=== PATIENT | female | born 1970 | race American Indian/Alaskan Native ===

== ENCOUNTER 2018-12-22 14:56 | Outpatient (CLI) | payer BC, OTHER | END 2018-12-22 14:57 | disposition home or self-care (01) | LOC: LABHHL 14:56 | PROVIDERS: ATTEND Surgery | DX: D24.1 Benign neoplasm of right breast (principal) | CPT/HCPCS: 88305 ==

== ENCOUNTER 2019-01-07 06:07 | Day surgery (SDC) | payer BC, OTHER ==
[~2019-01-07 06:07] MED LIST: MARCAINE 0.25% INFILTRATI ONE; VANCOMYCIN/NS 1 GM/250 ML 1 GM/250 ML BAG IV NR; WATER FOR IRRIG STERILE IR ONE; XYLOCAINE 1% 20 mL INFILTRATI ONE
--- NOTE | 2019-01-07 07:18 | Anesthesia Consultation ---
Anesthesia Consult and Med Hx Date of service: 01/07/19 - Airway Anesthetic Teeth Evaluation: Good ROM Head & Neck: Adequate Mental/Hyoid Distance: Adequate Mallampati Class: Class III Intubation Access Assessment: Possibly Difficult - Pulmonary Exam CTA: Yes - Cardiac Exam Cardiac Exam: RRR - Pre-Operative Health Status ASA Pre-Surgery Classification: ASA3 Proposed Anesthetic Plan: General - Pulmonary Hx Smoking: Yes (STARTED AGE 27; QUIT 2003) Hx Respiratory Symptoms: No COPD: No - Cardiovascular System Hx Hypertension: No Hx Heart Attack/AMI: No Hx Percutaneous Transluminal Coronary Angioplasty (PTCA): No Hx Cardia Arrhythmia: No - Central Nervous System Hx Seizures: No CVA: No Hx Psychiatric Problems: No - Gastrointestinal Hx Gastroesophageal Reflux Disease: Yes (hiatal hernia) - Endocrine Hx Renal Disease: No Hx Liver Disease: No Hx Insulin Dependent Diabetes: No Hx Non-Insulin Dependent Diabetes: No Hx Thyroid Disease: No - Other Systems Hx Alcohol Use: Yes Hx Obesity: Yes (BMI 48) - Additional Comments Anesthesia Medical History Comments: No hx anesthetic complication.
--- NOTE | 2019-01-07 07:18 | Anesthesia Day of Surgery ---
Anesthesia Day of Surgery - Day of Surgery Patient Examined: Yes Patient H&P Reviewed: Yes Patient is NPO: Yes
[2019-01-07] MEDS ORDERED: DILAUDID IV PRN (07:19)
[2019-01-07] MEDS ORDERED: PEPCID IV NR (07:19)
[2019-01-07] MEDS ORDERED: VERSED IV NR (08:00)
[2019-01-07] MEDS ORDERED: XYLOCAINE 1% 20 mL ONE ×2 (08:00→09:18)
[2019-01-07] MEDS ORDERED: LACTATED RINGERS 1,000 ML IV SCH (08:00)
[2019-01-07] MEDS ORDERED: VANCOMYCIN 2,000 MG in NACL 0.9% 500 ML 500 ML IV NR (08:00)
[2019-01-07] MEDS ORDERED: MARCAINE 0.25% INFILTRATI ONE ×2 (09:18→10:32)
[2019-01-07] MEDS ORDERED: SUBLIMAZE ONE ×2 (09:20→09:58)
[2019-01-07] MEDS ORDERED: DIPRIVAN 10 MG/ML IV ONE (09:20)
--- NOTE | 2019-01-07 09:54 | Mammography Report ---
NEEDLE LOCALIZATION AND HOOKWIRE PLACEMENT RIGHT BREAST:01/07/19 CLINICAL: Right breast cancer. COMPARISON: 12/22/18 FINDINGS: Using mammographic guidance, 1% lidocaine local anesthesia and sterile technique, a 5.0-cm Molina needle with a hookwire was placed from a CC from above approach to localize a mass with a biopsy clip.. The hookwire was deployed and the needle was removed. Satisfactory placement was confirmed by orthogonal views. The patient tolerated the procedure well and there were no apparent complications. IMPRESSION: Uncomplicated hookwire placement right breast.
[2019-01-07] MEDS ORDERED: XYLOCAINE 1% 20 mL INFILTRATI ONE ×2 (10:00→10:32)
[2019-01-07] MEDS ORDERED: WATER FOR IRRIG STERILE IR ONE (10:30)
[2019-01-07] MEDS ORDERED: TORADOL ONE (10:30)
[2019-01-07] MEDS ORDERED: ZOFRAN ONE (10:30)
[2019-01-07] MEDS ORDERED: DECADRON ONE (10:30)
--- NOTE | 2019-01-07 10:36 | Operative Report ---
Operative Report Operative Report: Operative Report: Date of Service: January 07, 2019 Preoperative diagnosis: Right breast mass of the upper outer quadrant Postoperative diagnosis: Same Procedure: Right breast mass excisional biopsy of the upper outer quadrant Surgeon: Mita Sheldon M.D. Findings: Right breast mass at 12 o'clock position 8 cm from the nipple with excisional biopsy performed; clip and wire present within radiograph specimen Complications: None Drains: None Estimated blood loss: Minimal Disposition: PACU in good condition Indication for operative procedure: This is a 48-year-old lady with right breast mass at the 12:00 position 8 cm from the nipple. She was recently seen in consultation and recommendations were for ultrasound guided needle core biopsy given mass noted on mammogram, radiology recommended 6 month followup with their thoughts of a cyst. Biopsy was performed with findings of a fibroepilethial lesion and recommendations are for an excisional biopsy of mass for a definitive diagnosis, differential of fibroadenoma or phyllodes tumor. Mass was not present on prior mammograms. Patient wished to proceed with the above procedure. The patient was procedure in detail: Radiologist placed wire to localize nodule. The patient was taken to the operating room and was laid supine. General anesthesia was administered. The right breast was prepped and draped in the normal sterile operative fashion. Timeout was performed. Ultrasound was used to oscar the area of incision, clip, wire and mass were noted. A 12:00 breast incision was made with a 15 blade knife with dissection taken down to the subcutaneous tissues. First began raising of the superior flap with removal of the wire from the skin and dissection taken down posteriorly followed by raising of the inferior, medial and lateral flaps. The area of concern was removed posterioly and with wire was not encountered. The specimen was sent to radiology with clip, wire and mass present and then sent to pathology. Hemostasis was then obtained using the Bovie cautery. Breast cavity was anesthesized with 1% lidocai ne and quarter percent marcaine. The breast cavity was irrigated and suctioned. The deep breast tissues were approximated and closed using interrupted 3-0 Vicryl and skin brought together and closed using a running 4-0 Monocryl followed by dermabond. She tolerated surgery very well and was awakened from anesthesia without any complication and transported to PACU in good condition.
--- NOTE | 2019-01-07 10:59 | Short Stay Summary ---
Short Stay Documentation Date of service: 01/07/19 - History H&P: obtained from office - Allergies and Medications Current Medications: Allergies Penicillins Allergy (Verified 01/05/19 17:52) Rash Home Medications Medication Instructions Recorded Confirmed Last Taken Type HYDROcodone/APAP 5-325 [[place] 1 each PO Q6HR PRN #20 tablet 01/07/19 Unknown Rx 5/325] Sulfamethoxazole/Trimethoprim 1 each PO BID #10 tablet 01/07/19 Unknown Rx [Bactrim DS TAB] Active Medications Famotidine (Pepcid) 20 mg IV ONCE NR Stop: 01/07/19 20:00 Last Admin: 01/07/19 08:40 Dose: 20 mg Documented by: Hydromorphone HCl (Dilaudid) 0.5 mg IV Q10MIN PRN PRN Reason: Pain , Severe (7-10) Stop: 01/07/19 20:00 Lactated Ringer's (Lactated Ringers) 1,000 mls @ 100 mls/hr IV DIRECT TRACIE Last Admin: 01/07/19 08:40 Dose: 100 mls/hr Documented by: Vancomycin HCl 2,000 mg/ (Sodium Chloride) 540 mls @ 250 mls/hr IV PREOP NR Stop: 01/07/19 13:00 Last Admin: 01/07/19 08:48 Dose: 250 mls/hr Documented by: Midazolam HCl (Versed) 2 mg IV PREOP NR Stop: 01/07/19 23:59 Last Admin: 01/07/19 08:45 Dose: 2 mg Documented by: - Brief post op/procedure progress note Date of procedure: 01/07/19 Pre-op diagnosis: Right breast mass Post-op diagnosis: same Procedure: Right breast mass excisional biopsy Anesthesia: GETA Findings: right breast mass at 12:00 position 8 cm from the nipple Surgeon: RODRICK BOBO Estimated blood loss: minimal Pathology: list (right breast mass) Specimen disposition: to lab Condition: stable - Disposition Condition at discharge: Good Disposition: DC-01 TO HOME OR SELFCARE Short Stay Discharge Plan Activity: other (no heavy lifting) Diet: regular Wound: keep clean and dry (may shower in 48 hours) Follow up with: RICARDO CHANG NP [Primary Care Provider] - 7 Days RODRICK BOBO MD [Staff Physician] - 7 Days Prescriptions: Sulfamethoxazole/Trimethoprim [Bactrim DS TAB] 1 each PO BID #10 tablet HYDROcodone/APAP 5-325 [[place] 5/325] 1 each PO Q6HR PRN #20 tablet PRN Reason: Pain
[2019-01-07] MEDS ORDERED: NORCO 5/325 PO PRN (11:02)
--- NOTE | 2019-01-07 11:27 | Mammography Report ---
SPECIMEN RADIOGRAPH RIGHT BREAST: 01/07/19 06:07:00 CLINICAL: Surgical excision of a known cancer. FINDINGS: The targeted mass with an adjacent localizer clip and a hookwire are identified within the specimen. IMPRESSION: Excision of the targeted lesion.
[2019-01-07 11:31] VITALS: BP 128/75
[2019-01-07] MEDS ORDERED: ZOFRAN IV ONE (12:00)
--- NOTE | 2019-01-07 16:41 | Post Anesthesia Evaluation ---
- Post Anesthesia Evaluation Patient Participated: Yes Airway Patent: Yes Stable Respiratory Function: Yes Nausea/Vomiting: No Temp > 96.8F: Yes Pain Manageable: Yes Adequeate Hydration: Yes Anesthesia Complications: No
== END 2019-01-07 12:15 | disposition home or self-care (01) ==
LOC: OR 06:07
PROVIDERS: ATTEND Surgery
DX: D24.1 Benign neoplasm of right breast (principal); R92.0 Mammographic microcalcification found on diagnostic imaging of breast; K21.9 Gastro-esophageal reflux disease without esophagitis; E66.9 Obesity, unspecified; Z68.42 Body mass index [BMI] 45.0-49.9, adult; Z72.89 Other problems related to lifestyle; Z80.1 Family history of malignant neoplasm of trachea, bronchus and lung; Z98.890 Other specified postprocedural states; Z79.899 Other long term (current) drug therapy; Z88.0 Allergy status to penicillin; Z87.891 Personal history of nicotine dependence
CPT/HCPCS: 19125; 19281; 76098; 88307; J1100; J1170; J1885; J2250; J2405; J2704; J3010; J3370; J7040; J7120

== ENCOUNTER 2021-03-28 11:19 | Outpatient (CLI) | payer BC ==
--- NOTE | 2021-03-28 12:03 | Mammography Report ---
DIGITAL SCREENING MAMMOGRAM WITH CAD, 03/28/2021 CLINICAL INFORMATION / INDICATION: Routine screening mammography. SCREENING MAMMO Z12.31 TECHNIQUE: Digital bilateral 2D mammography was obtained in the craniocaudal and mediolateral obliqu e projections. This examination was interpreted with the benefit of Computer-Aided Detection analysis . COMPARISON: 12/22/2018 through 03/24/2020. FINDINGS: Breast Density: The breasts are almost entirely fatty. No dominant mass, suspicious calcifications, or architectural distortion in either breast. Postbiopsy changes in the right breast are less prominent. No new abnormality is seen. IMPRESSION: No mammographic evidence of malignancy. Follow up recommendation: Routine yearly BI-RADS Category 2: Benign. A "normal" or negative report should not discourage follow up or biopsy of a clinically significant f inding. A written summary of these findings will be mailed to the patient. The patient will be entered into a mammography reporting system which will generate a reminder letter for the patient's next appointmen t at the appropriate interval. The [employer] recommends yearly mammograms starting at age 40 and continuing as l laureano as a woman is in good health. Breast MRI is recommended for women with an approximate 20-25% or greater lifetime risk of breast cancer, including women with a strong family history of breast or ova zaid cancer or who have been treated for Hodgkin's disease. Signer Name: Vazquez Massey MD Signed: 03/28/2021 11:58 AM Workstation Name: [id number]
== END 2021-03-28 11:20 | disposition home or self-care (01) ==
LOC: SPVWC 11:19
PROVIDERS: ATTEND Surgery
DX: Z12.31 Encounter for screening mammogram for malignant neoplasm of breast (principal)
CPT/HCPCS: 77067